=== PATIENT | male | born 1955 | race Caucasian/White ===

== ENCOUNTER 2019-07-30 05:33 | Inpatient (IN) ==
[2019-07-30] MEDS ORDERED: diphenhydrAMINE CAP 25 MG CAPSULE PO ONE (06:00)
[2019-07-30] MEDS ORDERED: MAGNESIUM SULF RIDER 2 GM in PREMIX 1 EACH IV PRN (06:00)
[2019-07-30] MEDS ORDERED: POTASSIUM CHLORIDE RIDER 10 MEQ in PREMIX 1 EACH IV PRN (06:00)
[2019-07-30] MEDS ORDERED: ASPIRIN 325 MG TABLET PO ONE (06:00)
[2019-07-30] MEDS ORDERED: DIAZEPAM 5 MG TABLET PO ONE (06:00)
[2019-07-30] MEDS ORDERED: LIDOCAINE 1% 20 ML VIAL ONE (06:46)
[2019-07-30] MEDS ORDERED: HEPARIN/NACL 0.9% 2 UNITS/ML 1,000 ML IV ONE (06:46)
[2019-07-30 06:53] LABS: Basophils # 0.1 10*3/uL (0.0-0.2); Basophils % 0.8 % (0.0-0.8); Eosinophils # 0.2 10*3/uL (0.0-0.87); Eosinophils % 2.4 % (0.00-10.9); Hematocrit 42.2 VOL% (42.0-52.0); Hemoglobin 14.1 GM/DL (14.0-18.0); Immature Granulocytes % 0.3 %; Immature Granulocytes Absolute 0.02 #; Lymphocytes # 2.5 10*3/uL (1.4-4.0); Lymphocytes % 31.5 % (21.2-54.2); Mean Corpuscular HGB Conc 33.4 GM/DL (32-36); Mean Corpuscular Volume 93.6 FL (87-102); Mean Platelet Volume 9.5 FL (9.6-12.0); Monocytes % 8.2 % (1.7-12.7); Neutrophils % 56.8 % (38.7-73.9); Platelet Count 279 T/CUMM (130-400); Red Blood Count 4.51 MC/CUMM (3.8-5.5); Red Cell Distribution Width 12.8 % (9.3-17.3); White Blood Count 7.8 T/CUMM (4-12)
[2019-07-30 06:57] LABS: PT Patient Result 11.3 SECS (9.6-12.2)
[2019-07-30] MEDS ORDERED: DIAZEPAM 5 MG TABLET ONE (07:05)
[2019-07-30] MEDS ORDERED: diphenhydrAMINE CAP 25 MG CAPSULE ONE (07:05)
[2019-07-30] MEDS: SODIUM CHLORIDE 0.9% 1,000 ML IV SCH ×2 (07:07→19:05)
[2019-07-30 07:24] LABS: Albumin 3.8 G/DL (3.4-5.0); Bilirubin,Total 0.4 MG/DL (0.2-1.0); Calcium 8.8 MG/DL (8.5-10.1); Osmolality,Calculated 275.7 MOS/KG (273-304)
[2019-07-30] MEDS ORDERED: HYDROmorphone 2 MG/1 ML VIAL ONE (07:26)
[2019-07-30] MEDS ORDERED: MIDAZOLAM 2 MG/2 ML VIAL ONE (07:26)
[2019-07-30] MEDS ORDERED: diphenhydrAMINE 50 MG/1 ML VIAL ONE (07:59)
[2019-07-30] MEDS ORDERED: HEPARIN/NACL 0.9% 2 UNITS/ML 500 ML IV ONE (08:11)
[2019-07-30] MEDS ORDERED: HEPARIN 5,000 UNIT/1 ML VIAL ONE (08:13)
[2019-07-30] MEDS ORDERED: ZALEPLON 5 MG CAPSULE PO PRN (08:47)
[2019-07-30] MEDS ORDERED: ONDANSETRON 4 MG/2 ML VIAL IV PRN (08:47)
[2019-07-30] MEDS ORDERED: CHLORPHENIRAMINE MALEATE 4 MG PO PRN (08:55)
[2019-07-30] MEDS ORDERED: ASPIRIN ACETAMINOPHEN CAFFEINE PO PRN (08:55)
[2019-07-30] MEDS ORDERED: ACETAMINOPHEN 325 MG TABLET PO PRN (08:55)
[2019-07-30] MEDS ORDERED: LOPERAMIDE 2 MG CAPSULE PO PRN (08:55)
[2019-07-30] MEDS ORDERED: ALUMINUM/MAGNES/SIMETH MAX STR 30 ML UDCUP PO PRN (14:46)
[2019-07-30] MEDS ORDERED: PROMETHAZINE 25 MG TABLET PO PRN (14:46)
[2019-07-30] MEDS ORDERED: PNEUMOCOCCAL VACCINE (13 VALENT) 0.5 ML SYRINGE IM ONE (14:52)
[2019-07-30] MEDS ORDERED: INFLUENZA VIRUS VACCINE 0.5 ML SYRINGE IM ONE (14:52)
[2019-07-30] MEDS: MECLIZINE 12.5 MG TABLET PO SCH (16:05)
[2019-07-30] MEDS: MULTIVITAMIN (CENTRUM) TABLET PO SCH (16:06)
[2019-07-30] MEDS: FERROUS SULFATE 325 MG TABLET PO SCH (16:06)
[2019-07-30] MEDS: NAPROXEN 250 MG TABLET PO SCH ×2 (16:06→23:02)
[2019-07-30] MEDS: ATORVASTATIN 40 MG TABLET PO SCH (16:06)
[2019-07-30] MEDS: LISINOPRIL/HCTZ 20-12.5 MG TABLET PO SCH (16:07)
[2019-07-30] MEDS: carBAMazepine 200 MG TABLET PO SCH ×2 (16:07→23:00)
[2019-07-30] MEDS: PHENobarbital 30 MG TABLET PO SCH ×2 (16:07→22:59)
[2019-07-31] MEDS: SODIUM CHLORIDE 0.9% 1,000 ML IV SCH (02:40)
[2019-07-31 06:20] LABS: Calcium 8.5 MG/DL (8.5-10.1); Osmolality,Calculated 272.8 MOS/KG (273-304)
[2019-07-31] MEDS ORDERED: GLUCAGON 1 MG VIAL IM PRN (08:32)
[2019-07-31] MEDS ORDERED: CEFUROXIME INJ 1,500 MG in SYRINGE 1 EACH IV ONE (08:32)
[2019-07-31] MEDS ORDERED: DEXTROSE 10% 25 GM/250 ML BAG IV PRN (08:32)
[2019-07-31] MEDS: carBAMazepine 200 MG TABLET PO SCH ×2 (09:18→22:19)
[2019-07-31] MEDS: NAPROXEN 250 MG TABLET PO SCH (09:18)
[2019-07-31] MEDS: LISINOPRIL/HCTZ 20-12.5 MG TABLET PO SCH (09:19)
[2019-07-31] MEDS: FERROUS SULFATE 325 MG TABLET PO SCH (09:19)
[2019-07-31] MEDS: ATORVASTATIN 40 MG TABLET PO SCH (09:20)
[2019-07-31] MEDS: MULTIVITAMIN (CENTRUM) TABLET PO SCH (09:20)
[2019-07-31] MEDS: PHENobarbital 30 MG TABLET PO SCH ×2 (09:21→22:22)
[2019-07-31] MEDS: CHLORHEXIDINE 0.12% ORAL RINSE 60 ML BOTTLE SWISH/SPIT SCH ×2 (09:24→22:18)
[2019-07-31] MEDS: CHLORHEXIDINE 4% SOLN 118 ML BOTTLE TOP SCH ×4 (09:25→22:18)
[2019-07-31 10:38] LABS: ABG Base Excess 5.7 MMOL/L (-2.5-2.5); ABG HCO3 29.5 MMOL/L (20-26); ABG Oxygen Saturation 96.6 % (95-100); ABG PH 7.436 (7.35-7.45); ABG PO2 80.7 MM HG (80-95); ABG TCO2 26.7 MMOL/L (23-27)
[2019-07-31] MEDS ORDERED: LORazepam 2 MG/1 ML VIAL IV PRN (14:18)
[2019-08-01] MEDS ORDERED: VANCOMYCIN 500 MG VIAL ONE (05:29)
[2019-08-01] MEDS ORDERED: PAPAVERINE 60 MG/2 ML VIAL ONE (05:29)
[2019-08-01] MEDS ORDERED: VANCOMYCIN 1,000 MG VIAL ONE (05:29)
[2019-08-01] MEDS ORDERED: MINERAL OIL/PETROLATUM OPH OINT 3.5 GM TUBE ONE (05:42)
[2019-08-01] MEDS ORDERED: SUFentanil 250 MCG/5 ML AMP ONE (05:42)
[2019-08-01] MEDS ORDERED: MIDAZOLAM 10 MG/2 ML VIAL ONE (05:42)
[2019-08-01] MEDS ORDERED: FAMOTIDINE 20 MG/2 ML VIAL IV ONE (06:00)
[2019-08-01] MEDS ORDERED: FAMOTIDINE 20 MG TABLET PO ONE (06:00)
[2019-08-01] MEDS ORDERED: carBAMazepine 200 MG TABLET PO ONE (06:00)
[2019-08-01] MEDS ORDERED: CEFUROXIME INJ 1,500 MG in SYRINGE 1 EACH IV ONE (06:00)
[2019-08-01] MEDS ORDERED: DIAZEPAM 5 MG TABLET PO ONE (06:00)
[2019-08-01] MEDS ORDERED: diphenhydrAMINE 50 MG/1 ML VIAL ONE (06:00)
[2019-08-01] MEDS ORDERED: PHENobarbital 30 MG TABLET PO ONE (06:00)
[2019-08-01 08:07] LABS: ABG Base Excess 2.8 MMOL/L (-2.5-2.5); ABG HCO3 25.1 MMOL/L (20-26); ABG Oxygen Saturation 99.1 % (95-100); ABG PCO2 31.2 MM HG (35-48); ABG PH 7.523 (7.35-7.45); ABG PO2 452.2 MM HG (80-95); Glucose Heart Surgery 99 MG/DL (74-106); Hemoglobin Heart Surgery 12.1 G/DL (14.0-18.0); Ionized Calcium Arterial 1.04 MMOL/L (1.21-1.46); PCO2 Patient Temp Arterial 31.2 MMHG; PH Patient Temp Arterial 7.523; PO2 Patient Temp Arterial 452.2 MM HG; Patient Temperature 37 CELCIUS; Potassium Heart/CVR 3.6 MMOL/L (3.5-5.1); Sodium Heart/CVR 135 MMOL/L (135-145)
[2019-08-01] MEDS ORDERED: SODIUM BICARBONATE 50 MEQ/50 ML VIAL IV ONE ×2 (08:44→12:58)
[2019-08-01] MEDS ORDERED: EPINEPHrine 1 MG/10 ML SYRINGE ONE (08:44)
[2019-08-01] MEDS ORDERED: PHENYLEPHRINE DRIP 40 MG/250 ML PREMIX IV ONE (08:44)
[2019-08-01] MEDS ORDERED: NITROPRUSSIDE 50 MG/2 ML VIAL ONE (08:44)
[2019-08-01] MEDS ORDERED: POTASSIUM CHLORIDE RIDER 0 ML IV ONE (08:44)
[2019-08-01] MEDS ORDERED: CALCIUM CHLORIDE 1,000 MG/10 ML SYRINGE IV ONE (08:44)
[2019-08-01] MEDS ORDERED: ALBUMIN 5% 12.5 GM/250 ML VIAL IV ONE ×2 (08:45)
[2019-08-01] MEDS: SODIUM CHLORIDE 0.9% 1,000 ML IV SCH ×4 (08:54→09:03)
[2019-08-01] MEDS: FERROUS SULFATE 325 MG TABLET PO SCH (08:56)
[2019-08-01] MEDS: LISINOPRIL/HCTZ 20-12.5 MG TABLET PO SCH (08:56)
[2019-08-01] MEDS: CHLORHEXIDINE 0.12% ORAL RINSE 60 ML BOTTLE SWISH/SPIT SCH (08:56)
[2019-08-01] MEDS: NAPROXEN 250 MG TABLET PO SCH (08:56)
[2019-08-01] MEDS: MECLIZINE 12.5 MG TABLET PO SCH (08:56)
[2019-08-01] MEDS: carBAMazepine 200 MG TABLET PO SCH ×2 (08:56→20:12)
[2019-08-01] MEDS: MULTIVITAMIN (CENTRUM) TABLET PO SCH (08:56)
[2019-08-01] MEDS: ATORVASTATIN 40 MG TABLET PO SCH (08:56)
[2019-08-01] MEDS: PHENobarbital 30 MG TABLET PO SCH ×2 (08:56→20:12)
[2019-08-01 09:46] LABS: Apearance,Urine Slightly Hazy (Clear); Bacteria,Urine Occasional /HPF (Few); Bilirubin,Urine Negative (Negative); Blood, Urine Large mg/dL (Negative); Glucose,Urine (UA) Negative (Negative); Ketones,Urine Negative (Negative); Mucus,Urine Occasional /LPF (Occasional); Nitrite,Urine Negative (Negative); Protein,Urine 100 MG/DL; RBC,Urine 254 /HPF (0-4); Renal Epithelial Cells,Urine Few /HPF (<1); Squamous Epithelial Cell,Urine Occasional /HPF (0-10); Urine Color Red (Yellow); Urine Specific Gravity 1.013 (1.001-1.035); Urine Urobilinogen < 2.0 EU/DL (0.2-1.0); WBC,Urine 1 /HPF (0-6)
[2019-08-01 10:03] LABS: Hemoglobin Heart Surgery 8.7 G/DL (14.0-18.0); PCO2 Patient Temp Venous 38.2 MM HG; PH Patient Temp Venous 7.479; PO2 Patient Temp Venous 41.1 MM HG; Potassium Heart/CVR 4.2 MMOL/L (3.5-5.1); VBG Base Excess 3.9 MEQ/L (0-4); VBG PCO2 39.9 MMHG (41-51); VBG PH 7.464; VBG PO2 44.1 MMHG (17-40)
[2019-08-01 10:36] LABS: Hematocrit Heart Surgery 29.2 PERCENT (42-52); Hemoglobin Heart Surgery 9.4 G/DL (14.0-18.0); PCO2 Patient Temp Venous 33.1 MM HG; PH Patient Temp Venous 7.534; PO2 Patient Temp Venous 36.4 MM HG; Potassium Heart/CVR 3.9 MMOL/L (3.5-5.1); VBG Base Excess 5.3 MEQ/L (0-4); VBG Oxygen Saturation 85.2 %; VBG PCO2 38.2 MMHG (41-51); VBG PH 7.488; VBG PO2 44.8 MMHG (17-40)
[2019-08-01 11:04] LABS: Hemoglobin Heart Surgery 9.7 G/DL (14.0-18.0); PCO2 Patient Temp Venous 27.6 MM HG; PH Patient Temp Venous 7.591; PO2 Patient Temp Venous 35.6 MM HG; VBG Base Excess 4.1 MEQ/L (0-4); VBG HCO3 26.8 MEQ/L (24-28); VBG Oxygen Saturation 86.1 %; VBG PCO2 32.9 MMHG (41-51); VBG PH 7.529; VBG PO2 47.2 MMHG (17-40)
[2019-08-01 11:34] LABS: Hematocrit Heart Surgery 30.2 PERCENT (42-52); Hemoglobin Heart Surgery 9.8 G/DL (14.0-18.0); PCO2 Patient Temp Venous 26.9 MM HG; PH Patient Temp Venous 7.595; PO2 Patient Temp Venous 29.5 MM HG; Potassium Heart/CVR 3.7 MMOL/L (3.5-5.1); VBG Base Excess 4.9 MEQ/L (0-4); VBG HCO3 28.5 MEQ/L (24-28); VBG Oxygen Saturation 81.4 %; VBG PCO2 32.6 MMHG (41-51); VBG PH 7.533; VBG PO2 39.1 MMHG (17-40)
[2019-08-01 12:07] LABS: Hemoglobin Heart Surgery 9.4 G/DL (14.0-18.0); PCO2 Patient Temp Venous 36.9 MM HG; PH Patient Temp Venous 7.499; PO2 Patient Temp Venous 34.9 MM HG; VBG Base Excess 5.3 MEQ/L (0-4); VBG HCO3 28.9 MEQ/L (24-28); VBG Oxygen Saturation 73.7 %; VBG PCO2 36.9 MMHG (41-51); VBG PH 7.499; VBG PO2 34.9 MMHG (17-40)
[2019-08-01] MEDS ORDERED: MANNITOL 100 GM/500 ML BAG IV ONE (12:57)
[2019-08-01] MEDS ORDERED: MAGNESIUM SULFATE 5 GM/10 ML VIAL IV ONE (12:58)
[2019-08-01] MEDS ORDERED: DEXTROSE 5% KCL 20 MEQ 40 MEQ/2,000 ML BAG IV ONE (12:58)
[2019-08-01] MEDS ORDERED: methylPREDNISolone SOD SUC 1,000 MG/8 ML VIAL ONE (12:58)
[2019-08-01] MEDS ORDERED: ALBUMIN 25% 25 GM/100 ML VIAL IV ONE (12:58)
[2019-08-01] MEDS ORDERED: PROTAMINE SULFATE 250 MG/25 ML VIAL IV ONE (12:58)
[2019-08-01] MEDS ORDERED: LIDOCAINE 2% 5 ML VIAL ONE ×2 (12:58→13:56)
[2019-08-01] MEDS ORDERED: HEPARIN 10,000 UNIT/10 ML VIAL ONE (12:58)
[2019-08-01] MEDS ORDERED: PROTAMINE SULFATE 50 MG/5 ML VIAL IV ONE ×3 (12:59→14:12)
[2019-08-01] MEDS ORDERED: FUROSEMIDE 20 MG/2 ML VIAL ONE (12:59)
[2019-08-01 13:03] LABS: ABG Base Excess 1.1 MMOL/L (-2.5-2.5); ABG HCO3 25.6 MMOL/L (20-26); ABG Oxygen Saturation 98.5 % (95-100); ABG PCO2 40.4 MM HG (35-48); ABG PO2 247.7 MM HG (80-95); ABG TCO2 26.9 MMOL/L (23-27); Glucose Heart Surgery 210 MG/DL (74-106); Hemoglobin Heart Surgery 9.3 G/DL (14.0-18.0); Ionized Calcium Arterial 1.24 MMOL/L (1.21-1.46); PCO2 Patient Temp Arterial 40.4 MMHG; PO2 Patient Temp Arterial 247.7 MM HG; Patient Temperature 37 CELCIUS; Potassium Heart/CVR 3.3 MMOL/L (3.5-5.1); Sodium Heart/CVR 134 MMOL/L (135-145)
[2019-08-01] MEDS ORDERED: CALCIUM CHLORIDE 1,000 MG/10 ML VIAL IV ONE (13:56)
[2019-08-01] MEDS ORDERED: PHENYLEPHRINE DRIP 20 MG/250 ML PREMIX IV ONE (13:56)
[2019-08-01] MEDS ORDERED: HEPARIN/NACL 0.9% 2 UNITS/ML 500 ML IV ONE (13:56)
[2019-08-01] MEDS ORDERED: SEVOFLURANE 1 UNIT/15 MINUTE INH ONE (13:56)
[2019-08-01] MEDS ORDERED: SODIUM CHLORIDE 0.9% 100 ML IV ONE (13:57)
[2019-08-01] MEDS ORDERED: ETOMIDATE 40 MG/20 ML VIAL IV ONE (13:57)
[2019-08-01] MEDS ORDERED: SODIUM CHLORIDE 0.9% 250 ML IV ONE (13:57)
[2019-08-01] MEDS ORDERED: SODIUM CHLORIDE 0.9% 2,000 ML IV ONE (13:57)
[2019-08-01] MEDS ORDERED: NITROGLYCERIN DRIP 50 MG/250 ML BOTTLE IV ONE (13:57)
[2019-08-01] MEDS ORDERED: AMINOCAPROIC ACID 5,000 MG/20 ML VIAL ONE (13:57)
[2019-08-01] MEDS ORDERED: VECURONIUM 10 MG VIAL IV ONE (13:57)
[2019-08-01] MEDS ORDERED: LACTATED RINGERS 1,000 ML IV ONE (13:57)
[2019-08-01] MEDS: PHENYLEPHRINE DRIP 40 MG/250 ML PREMIX IV PRN (14:00)
[2019-08-01] MEDS: ALBUMIN 5% 12.5 GM in PREMIX 1 EACH IV PRN ×2 (14:00→16:50)
[2019-08-01] MEDS ORDERED: INSULIN REGULAR 100 UNIT/ML IV PRN (14:09)
[2019-08-01] MEDS ORDERED: INSULIN REGULAR 100 UNIT/ML IV ONE (14:09)
[2019-08-01] MEDS ORDERED: INSULIN REGULAR DRIP 100 ML IV SCH (14:09)
[2019-08-01] MEDS ORDERED: MIDAZOLAM 10 MG/2 ML VIAL IV PRN (14:09)
[2019-08-01] MEDS ORDERED: MAGNESIUM SULF RIDER 4 GM in PREMIX 1 EACH IV PRN (14:09)
[2019-08-01] MEDS ORDERED: POTASSIUM CHLORIDE RIDER 10 MEQ in PREMIX 1 EACH IV PRN (14:09)
[2019-08-01] MEDS ORDERED: DEXTROSE 10% 250 ML BAG IV PRN ×2 (14:09)
[2019-08-01] MEDS ORDERED: VECURONIUM 10 MG VIAL IV PRN ×2 (14:09)
[2019-08-01] MEDS ORDERED: MORPHINE 10 MG/1 ML VIAL IV PRN (14:09)
[2019-08-01] MEDS ORDERED: POTASSIUM CHLORIDE RIDER 20 MEQ in PREMIX 1 EACH IV PRN (14:09)
[2019-08-01] MEDS ORDERED: SODIUM CHLORIDE 0.45% 1,000 ML IV SCH ×2 (14:09)
[2019-08-01] MEDS ORDERED: NITROPRUSSIDE 100 MG in DEXTROSE 5% 250 ML IV PRN (14:09)
[2019-08-01] MEDS ORDERED: ACETAMINOPHEN 650 MG SUPP RECTAL PRN (14:09)
[2019-08-01] MEDS ORDERED: ONDANSETRON 4 MG/2 ML VIAL IV PRN (14:09)
[2019-08-01] MEDS ORDERED: MAGNESIUM SULF RIDER 2 GM in PREMIX 1 EACH IV PRN (14:09)
[2019-08-01] MEDS ORDERED: CALCIUM CHLORIDE 1,000 MG/10 ML SYRINGE IV PRN (14:09)
[2019-08-01] MEDS ORDERED: LACTATED RINGERS 250 ML IV PRN (14:09)
[2019-08-01 14:17] LABS: ABG Base Excess 0.7 MMOL/L (-2.5-2.5); ABG HCO3 25.1 MMOL/L (20-26); ABG Oxygen Saturation 99.3 % (95-100); ABG PCO2 39.4 MM HG (35-48); ABG PH 7.414 (7.35-7.45); ABG TCO2 23.2 MMOL/L (23-27); Glucose Heart Surgery 167 MG/DL (74-106); Hematocrit Heart Surgery 27.7 PERCENT (42-52); Hemoglobin Heart Surgery 8.9 G/DL (14.0-18.0); Potassium Heart/CVR 3.8 MMOL/L (3.5-5.1)
[2019-08-01 14:21] LABS: Basophils % 0.2 % (0.0-0.8); Eosinophils # 0.1 10*3/uL (0.0-0.87); Eosinophils % 0.7 % (0.00-10.9); Hematocrit 26.6 VOL% (42.0-52.0); Immature Granulocytes % 0.9 %; Immature Granulocytes Absolute 0.14 #; Lymphocytes # 1.2 10*3/uL (1.4-4.0); Lymphocytes % 7.5 % (21.2-54.2); Mean Corpuscular HGB Conc 33.8 GM/DL (32-36); Mean Corpuscular Volume 94.3 FL (87-102); Mean Platelet Volume 9.6 FL (9.6-12.0); Monocytes % 6.8 % (1.7-12.7); Neutrophils % 83.9 % (38.7-73.9); Platelet Count 200 T/CUMM (130-400); Red Blood Count 2.82 MC/CUMM (3.8-5.5); Red Cell Distribution Width 12.8 % (9.3-17.3); White Blood Count 16.5 T/CUMM (4-12)
[2019-08-01 14:31] LABS: INR 1.2; PT Patient Result 13.5 SECS (9.6-12.2)
[2019-08-01 14:36] LABS: CKMB % 6.9 %
[2019-08-01 14:39] LABS: Troponin I 11.8 NG/ML (0.00-0.045)
[2019-08-01 14:43] LABS: Albumin 2.6 G/DL (3.4-5.0); Bilirubin,Total 0.5 MG/DL (0.2-1.0); Calcium 8.5 MG/DL (8.5-10.1); Osmolality,Calculated 280.4 MOS/KG (273-304); Total Protein 4.8 G/DL (6.4-8.3)
[2019-08-01] MEDS ORDERED: MIDAZOLAM 2 MG/2 ML VIAL ONE (14:50)
[2019-08-01] MEDS: MIDAZOLAM 2 MG/2 ML VIAL IV PRN ×2 (15:01→16:12)
[2019-08-01] MEDS: LACTATED RINGERS 1,000 ML IV PRN ×2 (15:33→15:50)
[2019-08-01 15:50] LABS: ABG Base Excess -1.6 MMOL/L (-2.5-2.5); ABG HCO3 23.1 MMOL/L (20-26); ABG Oxygen Saturation 97.9 % (95-100); ABG PCO2 49.3 MM HG (35-48); ABG PH 7.316 (7.35-7.45); ABG TCO2 22.5 MMOL/L (23-27); Glucose Heart Surgery 182 MG/DL (74-106); Hematocrit Heart Surgery 36.8 PERCENT (42-52); Potassium Heart/CVR 4.8 MMOL/L (3.5-5.1)
[2019-08-01] MEDS: KETOROLAC 30 MG/1 ML VIAL IV SCH ×2 (16:08→20:12)
[2019-08-01 18:14] LABS: ABG Base Excess -1.4 MMOL/L (-2.5-2.5); ABG HCO3 23.3 MMOL/L (20-26); ABG PCO2 47.4 MM HG (35-48); ABG PH 7.329 (7.35-7.45); ABG TCO2 22.4 MMOL/L (23-27); Glucose Heart Surgery 195 MG/DL (74-106); Hematocrit Heart Surgery 35.6 PERCENT (42-52); Hemoglobin Heart Surgery 11.6 G/DL (14.0-18.0); Potassium Heart/CVR 4.6 MMOL/L (3.5-5.1)
[2019-08-01] MEDS ORDERED: FUROSEMIDE 40 MG/4 ML VIAL IV ONE (20:11)
[2019-08-01] MEDS ORDERED: CHLORHEXIDINE 0.12% ORAL RINSE 60 ML BOTTLE SWISH/SPIT SCH (21:00)
[2019-08-01] MEDS: MORPHINE 4 MG/1 ML VIAL IV PRN (21:03)
[2019-08-01] MEDS ORDERED: CEFUROXIME INJ 1,500 MG in SYRINGE 1 EACH IV SCH (22:00)
[2019-08-02 00:14] LABS: CKMB % 8.4 %
[2019-08-02 00:15] LABS: Troponin I 27.3 NG/ML (0.00-0.045)
[2019-08-02] MEDS ORDERED: FUROSEMIDE 40 MG/4 ML VIAL IV ONE (01:18)
[2019-08-02] MEDS: PHENYLEPHRINE DRIP 40 MG/250 ML PREMIX IV PRN ×2 (01:37→11:55)
[2019-08-02] MEDS: KETOROLAC 30 MG/1 ML VIAL IV SCH (02:04)
[2019-08-02 03:15] LABS: ABG HCO3 24.4 MMOL/L (20-26); ABG Oxygen Saturation 96.3 % (95-100); ABG PCO2 52.6 MM HG (35-48); ABG PH 7.316 (7.35-7.45); ABG PO2 83.2 MM HG (80-95); ABG TCO2 24.4 MMOL/L (23-27); Glucose Heart Surgery 125 MG/DL (74-106); Hematocrit Heart Surgery 33.7 PERCENT (42-52); Hemoglobin Heart Surgery 10.9 G/DL (14.0-18.0); Potassium Heart/CVR 4.7 MMOL/L (3.5-5.1)
[2019-08-02 03:17] LABS: Basophils % 0.1 % (0.0-0.8); Hematocrit 32.1 VOL% (42.0-52.0); Hemoglobin 10.6 GM/DL (14.0-18.0); Immature Granulocytes % 0.4 %; Immature Granulocytes Absolute 0.08 #; Mean Corpuscular Volume 91.7 FL (87-102); Mean Platelet Volume 10.4 FL (9.6-12.0); Monocytes % 9.5 % (1.7-12.7); Platelet Count 176 T/CUMM (130-400); Red Cell Distribution Width 15.6 % (9.3-17.3); White Blood Count 18.8 T/CUMM (4-12)
[2019-08-02 03:48] LABS: Albumin 3.4 G/DL (3.4-5.0); Bilirubin,Direct 0.12 MG/DL (0.0-0.20); Bilirubin,Total 0.4 MG/DL (0.2-1.0); Calcium 7.8 MG/DL (8.5-10.1); Osmolality,Calculated 277.7 MOS/KG (273-304); Total Protein 5.8 G/DL (6.4-8.3)
[2019-08-02] MEDS: MORPHINE 4 MG/1 ML VIAL IV PRN ×2 (05:58→21:53)
[2019-08-02] MEDS ORDERED: PROMETHAZINE INJ 12.5 MG in SODIUM CHLORIDE 0.9% 50 ML IV PRN (06:13)
[2019-08-02] MEDS ORDERED: METOCLOPRAMIDE 10 MG/2 ML VIAL IV PRN (06:13)
[2019-08-02] MEDS ORDERED: PHENobarbital 30 MG TABLET PO ONE (06:24)
[2019-08-02] MEDS ORDERED: carBAMazepine 200 MG TABLET PO ONE (06:24)
[2019-08-02] MEDS ORDERED: ALUMINUM/MAGNES/SIMETH MAX STR 30 ML UDCUP PO PRN ×2 (06:24→06:38)
[2019-08-02] MEDS ORDERED: LOPERAMIDE 2 MG CAPSULE PO PRN (06:24)
[2019-08-02] MEDS ORDERED: GLUCAGON 1 MG VIAL IM PRN ×2 (06:38)
[2019-08-02] MEDS ORDERED: MAGNESIUM SULF RIDER 4 GM in PREMIX 1 EACH IV PRN (06:38)
[2019-08-02] MEDS ORDERED: MAGNESIUM SULF RIDER 2 GM in PREMIX 1 EACH IV PRN (06:38)
[2019-08-02] MEDS ORDERED: ONDANSETRON 4 MG/2 ML VIAL IV PRN (06:38)
[2019-08-02] MEDS ORDERED: DEXTROSE 10% 250 ML BAG IV PRN (06:38)
[2019-08-02] MEDS ORDERED: ACETAMINOPHEN 325 MG TABLET PO PRN (06:38)
[2019-08-02] MEDS ORDERED: DEXTROSE 50% 25 GM/50 ML VIAL IV PRN (06:38)
[2019-08-02] MEDS ORDERED: POTASSIUM CHLORIDE 20 MEQ TABLET PO PRN (06:38)
[2019-08-02] MEDS: SODIUM CHLOR 0.45% KCL 20 MEQ 20 MEQ/1,000 ML BAG IV SCH (08:46)
[2019-08-02] MEDS: ASPIRIN EC 325 MG TABLET PO SCH (08:48)
[2019-08-02] MEDS: carBAMazepine 200 MG TABLET PO SCH ×2 (08:48→20:00)
[2019-08-02] MEDS: PHENobarbital 30 MG TABLET PO SCH ×2 (08:48→20:00)
[2019-08-02] MEDS: MULTIVITAMIN (CENTRUM) TABLET PO SCH (08:48)
[2019-08-02] MEDS: DOCUSATE SODIUM 100 MG CAPSULE PO SCH (08:49)
[2019-08-02] MEDS: CHLORHEXIDINE 0.12% ORAL RINSE 60 ML BOTTLE SWISH/SPIT SCH ×2 (08:49→20:00)
[2019-08-02] MEDS: PANTOPRAZOLE 40 MG TABLET PO SCH (08:49)
[2019-08-02] MEDS: MECLIZINE 25 MG TABLET PO SCH (08:49)
[2019-08-02] MEDS: LISINOPRIL/HCTZ 20-12.5 MG TABLET PO SCH (08:49)
[2019-08-02] MEDS: KETOROLAC 15 MG/1 ML VIAL IV SCH ×3 (08:50→19:56)
[2019-08-02] MEDS: FERROUS SULFATE 325 MG TABLET PO SCH (08:52)
[2019-08-02] MEDS ORDERED: ATORVASTATIN 40 MG TABLET PO SCH (09:00)
[2019-08-02] MEDS ORDERED: PHENYLEPHRINE DRIP 40 MG/250 ML PREMIX IV ONE (11:53)
[2019-08-02] MEDS: INSULIN REGULAR 100 UNIT/ML SUBCUT SCH ×2 (12:25→17:01)
[2019-08-02] MEDS ORDERED: ALBUMIN 5% 25 GM in PREMIX 1 EACH IV ONE (13:35)
[2019-08-03] MEDS: PHENYLEPHRINE DRIP 40 MG/250 ML PREMIX IV PRN (00:01)
[2019-08-03] MEDS: INSULIN REGULAR 100 UNIT/ML SUBCUT SCH ×4 (00:15→17:40)
[2019-08-03] MEDS: MORPHINE 4 MG/1 ML VIAL IV PRN ×2 (01:15→03:35)
[2019-08-03 05:09] LABS: Basophils # 0.1 10*3/uL (0.0-0.2); Basophils % 0.4 % (0.0-0.8); Eosinophils # 0.1 10*3/uL (0.0-0.87); Eosinophils % 0.7 % (0.00-10.9); Hematocrit 24.4 VOL% (42.0-52.0); Hemoglobin 8.1 GM/DL (14.0-18.0); Immature Granulocytes % 0.5 %; Immature Granulocytes Absolute 0.06 #; Lymphocytes # 1.7 10*3/uL (1.4-4.0); Lymphocytes % 13.9 % (21.2-54.2); Mean Corpuscular HGB Conc 33.2 GM/DL (32-36); Mean Corpuscular Volume 93.5 FL (87-102); Mean Platelet Volume 11.1 FL (9.6-12.0); Monocytes % 9.2 % (1.7-12.7); Neutrophils % 75.3 % (38.7-73.9); Platelet Count 132 T/CUMM (130-400); Red Blood Count 2.61 MC/CUMM (3.8-5.5); White Blood Count 12.1 T/CUMM (4-12)
[2019-08-03 05:41] LABS: Alanine Aminotransferase 34 U/L (16-61); Albumin 3.2 G/DL (3.4-5.0); Alkaline Phosphatase 52 U/L (45-117); Aspartate Amino Transferase 64 U/L (0-37); Bilirubin,Direct < 0.100 MG/DL (0.0-0.20); Bilirubin,Indirect 0.5 MG/DL (0.0-1.0); Blood Urea Nitrogen 30 MG/DL (7-18); CKMB % 2.4 %; Calcium 7.6 MG/DL (8.5-10.1); Estimated Glom Filtration Rate 52 ML/MIN; Glucose 133 MG/DL (74-106); Total Protein 5.5 G/DL (6.4-8.3)
[2019-08-03] MEDS ORDERED: FUROSEMIDE 40 MG/4 ML VIAL IV ONE (06:00)
[2019-08-03] MEDS: HYDROmorphone 2 MG/1 ML VIAL IV PRN ×2 (07:28→12:06)
[2019-08-03] MEDS: LISINOPRIL/HCTZ 20-12.5 MG TABLET PO SCH (08:16)
[2019-08-03] MEDS: DOCUSATE SODIUM 100 MG CAPSULE PO SCH (08:22)
[2019-08-03] MEDS: carBAMazepine 200 MG TABLET PO SCH ×2 (08:22→21:52)
[2019-08-03] MEDS: PANTOPRAZOLE 40 MG TABLET PO SCH (08:22)
[2019-08-03] MEDS: FERROUS SULFATE 325 MG TABLET PO SCH (08:22)
[2019-08-03] MEDS: ASPIRIN EC 325 MG TABLET PO SCH (08:22)
[2019-08-03] MEDS: PHENobarbital 30 MG TABLET PO SCH ×2 (08:23→21:52)
[2019-08-03] MEDS: MULTIVITAMIN (CENTRUM) TABLET PO SCH (08:23)
[2019-08-03] MEDS: SODIUM CHLOR 0.45% KCL 20 MEQ 20 MEQ/1,000 ML BAG IV SCH (08:42)
[2019-08-03] MEDS: CHLORHEXIDINE 0.12% ORAL RINSE 60 ML BOTTLE SWISH/SPIT SCH ×2 (11:20→21:52)
[2019-08-04] MEDS: INSULIN REGULAR 100 UNIT/ML SUBCUT SCH ×4 (00:36→19:35)
[2019-08-04 05:27] LABS: Basophils % 0.3 % (0.0-0.8); Eosinophils # 0.1 10*3/uL (0.0-0.87); Eosinophils % 1.2 % (0.00-10.9); Hematocrit 24.4 VOL% (42.0-52.0); Hemoglobin 8.1 GM/DL (14.0-18.0); Immature Granulocytes % 0.9 %; Immature Granulocytes Absolute 0.08 #; Lymphocytes % 10.7 % (21.2-54.2); Mean Corpuscular HGB Conc 33.2 GM/DL (32-36); Mean Corpuscular Volume 94.6 FL (87-102); Mean Platelet Volume 10.8 FL (9.6-12.0); Monocytes % 9.1 % (1.7-12.7); Neutrophils % 77.8 % (38.7-73.9); Platelet Count 126 T/CUMM (130-400); Red Blood Count 2.58 MC/CUMM (3.8-5.5); Red Cell Distribution Width 14.2 % (9.3-17.3); White Blood Count 9.3 T/CUMM (4-12)
[2019-08-04 05:56] LABS: Alanine Aminotransferase 31 U/L (16-61); Albumin 3.2 G/DL (3.4-5.0); Alkaline Phosphatase 55 U/L (45-117); Aspartate Amino Transferase 38 U/L (0-37); Bilirubin,Indirect 0.4 MG/DL (0.0-1.0); Blood Urea Nitrogen 27 MG/DL (7-18); Calcium 7.9 MG/DL (8.5-10.1); Estimated Glom Filtration Rate 105 ML/MIN; Glucose 128 MG/DL (74-106); Osmolality,Calculated 274.2 MOS/KG (273-304)
[2019-08-04] MEDS: traMADol 50 MG TABLET PO PRN ×2 (06:35→21:06)
[2019-08-04] MEDS: MECLIZINE 25 MG TABLET PO SCH (08:27)
[2019-08-04] MEDS: MULTIVITAMIN (CENTRUM) TABLET PO SCH (08:27)
[2019-08-04] MEDS: carBAMazepine 200 MG TABLET PO SCH ×2 (08:27→21:05)
[2019-08-04] MEDS: LISINOPRIL/HCTZ 20-12.5 MG TABLET PO SCH (08:28)
[2019-08-04] MEDS: DOCUSATE SODIUM 100 MG CAPSULE PO SCH (08:28)
[2019-08-04] MEDS: FERROUS SULFATE 325 MG TABLET PO SCH (08:28)
[2019-08-04] MEDS: PHENobarbital 30 MG TABLET PO SCH ×2 (08:28→21:12)
[2019-08-04] MEDS: CHLORHEXIDINE 0.12% ORAL RINSE 60 ML BOTTLE SWISH/SPIT SCH ×2 (08:28→21:06)
[2019-08-04] MEDS: ASPIRIN EC 325 MG TABLET PO SCH (08:28)
[2019-08-04] MEDS: PANTOPRAZOLE 40 MG TABLET PO SCH (08:34)
[2019-08-04] MEDS: MAGNESIUM HYDROXIDE SUSP 30 ML UDCUP PO PRN (08:36)
[2019-08-05] MEDS: traMADol 50 MG TABLET PO PRN (05:51)
[2019-08-05] MEDS: LISINOPRIL/HCTZ 20-12.5 MG TABLET PO SCH (08:51)
[2019-08-05] MEDS: MULTIVITAMIN (CENTRUM) TABLET PO SCH (08:51)
[2019-08-05] MEDS: CHLORHEXIDINE 0.12% ORAL RINSE 60 ML BOTTLE SWISH/SPIT SCH ×2 (08:51→21:01)
[2019-08-05] MEDS: carBAMazepine 200 MG TABLET PO SCH ×2 (08:51→21:01)
[2019-08-05] MEDS: PHENobarbital 30 MG TABLET PO SCH ×2 (08:52→21:01)
[2019-08-05] MEDS: FERROUS SULFATE 325 MG TABLET PO SCH (08:52)
[2019-08-05] MEDS: PANTOPRAZOLE 40 MG TABLET PO SCH (08:52)
[2019-08-05] MEDS: DOCUSATE SODIUM 100 MG CAPSULE PO SCH (08:52)
[2019-08-05] MEDS: ASPIRIN EC 325 MG TABLET PO SCH (08:52)
[2019-08-05] MEDS: MAGNESIUM HYDROXIDE SUSP 30 ML UDCUP PO PRN (08:58)
[2019-08-05] MEDS: HYDROmorphone 2 MG/1 ML VIAL IV PRN ×2 (08:59→21:11)
[2019-08-05] MEDS: ZALEPLON 5 MG CAPSULE PO PRN (21:11)
[2019-08-06 05:53] LABS: Basophils # 0.1 10*3/uL (0.0-0.2); Basophils % 0.6 % (0.0-0.8); Eosinophils # 0.6 10*3/uL (0.0-0.87); Eosinophils % 6.2 % (0.00-10.9); Immature Granulocytes % 1.8 %; Immature Granulocytes Absolute 0.17 #; Lymphocytes # 1.2 10*3/uL (1.4-4.0); Lymphocytes % 12.8 % (21.2-54.2); Mean Corpuscular Volume 96.5 FL (87-102); Mean Platelet Volume 10.8 FL (9.6-12.0); NRBC # 0.03 10*3/uL; Neutrophils % 67.6 % (38.7-73.9); Platelet Count 216 T/CUMM (130-400); Red Blood Count 2.59 MC/CUMM (3.8-5.5); Red Cell Distribution Width 14.4 % (9.3-17.3); White Blood Count 9.5 T/CUMM (4-12)
[2019-08-06 06:37] LABS: Alanine Aminotransferase 29 U/L (16-61); Alkaline Phosphatase 64 U/L (45-117); Aspartate Amino Transferase 19 U/L (0-37); Bilirubin,Direct < 0.100 MG/DL (0.0-0.20); Bilirubin,Indirect 0.3 MG/DL (0.0-1.0); Bilirubin,Total < 0.39 MG/DL (0.2-1.0); Blood Urea Nitrogen 22 MG/DL (7-18); Calcium 7.8 MG/DL (8.5-10.1); Estimated Glom Filtration Rate 120 ML/MIN; Glucose 116 MG/DL (74-106); Osmolality,Calculated 276.8 MOS/KG (273-304); Total Protein 5.8 G/DL (6.4-8.3)
[2019-08-06] MEDS: DOCUSATE SODIUM 100 MG CAPSULE PO SCH (09:29)
[2019-08-06] MEDS: ASPIRIN EC 325 MG TABLET PO SCH (09:30)
[2019-08-06] MEDS: FERROUS SULFATE 325 MG TABLET PO SCH (09:30)
[2019-08-06] MEDS: carBAMazepine 200 MG TABLET PO SCH ×2 (09:31→21:45)
[2019-08-06] MEDS: LISINOPRIL/HCTZ 20-12.5 MG TABLET PO SCH (09:31)
[2019-08-06] MEDS: PHENobarbital 30 MG TABLET PO SCH ×2 (09:31→21:45)
[2019-08-06] MEDS: MECLIZINE 25 MG TABLET PO SCH (09:32)
[2019-08-06] MEDS: PANTOPRAZOLE 40 MG TABLET PO SCH (09:33)
[2019-08-06] MEDS: MULTIVITAMIN (CENTRUM) TABLET PO SCH (09:33)
[2019-08-06] MEDS: CHLORHEXIDINE 0.12% ORAL RINSE 60 ML BOTTLE SWISH/SPIT SCH ×2 (09:33→21:46)
[2019-08-06] MEDS: traMADol 50 MG TABLET PO PRN (13:47)
[2019-08-06] MEDS: ZALEPLON 5 MG CAPSULE PO PRN (21:45)
[2019-08-07] MEDS: HYDROmorphone 2 MG/1 ML VIAL IV PRN (02:40)
[2019-08-07 05:50] LABS: Basophils # 0.1 10*3/uL (0.0-0.2); Basophils % 0.8 % (0.0-0.8); Eosinophils # 0.6 10*3/uL (0.0-0.87); Eosinophils % 5.7 % (0.00-10.9); Hematocrit 28.1 VOL% (42.0-52.0); Hemoglobin 8.8 GM/DL (14.0-18.0); Immature Granulocytes % 2.2 %; Immature Granulocytes Absolute 0.24 #; Lymphocytes # 1.8 10*3/uL (1.4-4.0); Lymphocytes % 16.7 % (21.2-54.2); Mean Corpuscular HGB Conc 31.3 GM/DL (32-36); Mean Corpuscular Volume 97.6 FL (87-102); Mean Platelet Volume 9.9 FL (9.6-12.0); NRBC # 0.02 10*3/uL; Neutrophils % 63.6 % (38.7-73.9); Platelet Count 283 T/CUMM (130-400); Red Blood Count 2.88 MC/CUMM (3.8-5.5); Red Cell Distribution Width 14.7 % (9.3-17.3); White Blood Count 10.8 T/CUMM (4-12)
[2019-08-07 06:22] LABS: Alanine Aminotransferase 38 U/L (16-61); Albumin 2.7 G/DL (3.4-5.0); Alkaline Phosphatase 73 U/L (45-117); Aspartate Amino Transferase 21 U/L (0-37); Bilirubin,Direct < 0.100 MG/DL (0.0-0.20); Bilirubin,Indirect 0.7 MG/DL (0.0-1.0); Blood Urea Nitrogen 19 MG/DL (7-18); Calcium 8.1 MG/DL (8.5-10.1); Estimated Glom Filtration Rate 126 ML/MIN; Glucose 105 MG/DL (74-106); Osmolality,Calculated 271.1 MOS/KG (273-304); Total Protein 5.9 G/DL (6.4-8.3)
[2019-08-07] MEDS: DOCUSATE SODIUM 100 MG CAPSULE PO SCH (10:12)
[2019-08-07] MEDS: CHLORHEXIDINE 0.12% ORAL RINSE 60 ML BOTTLE SWISH/SPIT SCH ×2 (10:13→21:01)
[2019-08-07] MEDS: ASPIRIN EC 325 MG TABLET PO SCH (10:13)
[2019-08-07] MEDS: LISINOPRIL/HCTZ 20-12.5 MG TABLET PO SCH (10:13)
[2019-08-07] MEDS: FERROUS SULFATE 325 MG TABLET PO SCH (10:13)
[2019-08-07] MEDS: MULTIVITAMIN (CENTRUM) TABLET PO SCH (10:13)
[2019-08-07] MEDS: PANTOPRAZOLE 40 MG TABLET PO SCH (10:14)
[2019-08-07] MEDS: carBAMazepine 200 MG TABLET PO SCH ×2 (10:22→21:01)
[2019-08-07] MEDS: PHENobarbital 30 MG TABLET PO SCH ×2 (10:22→21:01)
[2019-08-07] MEDS: carvediloL 3.125 MG TABLET PO SCH ×2 (10:34→21:02)
[2019-08-07] MEDS ORDERED: KETOROLAC 30 MG/1 ML VIAL IV ONE (15:08)
[2019-08-07] MEDS: ROSUVASTATIN 20 MG TABLET PO SCH (21:02)
[2019-08-08] MEDS: traMADol 50 MG TABLET PO PRN ×3 (00:07→16:12)
[2019-08-08] MEDS: ZOLPIDEM 5 MG TABLET PO PRN (00:08)
[2019-08-08 06:17] LABS: Basophils # 0.1 10*3/uL (0.0-0.2); Basophils % 0.7 % (0.0-0.8); Eosinophils # 0.7 10*3/uL (0.0-0.87); Eosinophils % 6.1 % (0.00-10.9); Hematocrit 29.9 VOL% (42.0-52.0); Hemoglobin 9.5 GM/DL (14.0-18.0); Immature Granulocytes % 1.5 %; Immature Granulocytes Absolute 0.17 #; Lymphocytes # 1.8 10*3/uL (1.4-4.0); Lymphocytes % 16.3 % (21.2-54.2); Mean Corpuscular HGB Conc 31.8 GM/DL (32-36); Mean Corpuscular Volume 97.1 FL (87-102); Mean Platelet Volume 10.1 FL (9.6-12.0); Monocytes % 8.5 % (1.7-12.7); NRBC # 0.02 10*3/uL; Neutrophils % 66.9 % (38.7-73.9); Platelet Count 321 T/CUMM (130-400); Red Blood Count 3.08 MC/CUMM (3.8-5.5); Red Cell Distribution Width 15.2 % (9.3-17.3); White Blood Count 11.1 T/CUMM (4-12)
[2019-08-08 06:35] LABS: Calcium 8.4 MG/DL (8.5-10.1)
[2019-08-08] MEDS: LISINOPRIL/HCTZ 20-12.5 MG TABLET PO SCH (08:42)
[2019-08-08] MEDS: MULTIVITAMIN (CENTRUM) TABLET PO SCH (08:42)
[2019-08-08] MEDS: MECLIZINE 25 MG TABLET PO SCH (08:42)
[2019-08-08] MEDS: carBAMazepine 200 MG TABLET PO SCH ×2 (08:42→21:57)
[2019-08-08] MEDS: PHENobarbital 30 MG TABLET PO SCH ×2 (08:43→21:57)
[2019-08-08] MEDS: DOCUSATE SODIUM 100 MG CAPSULE PO SCH (08:45)
[2019-08-08] MEDS: FERROUS SULFATE 325 MG TABLET PO SCH (08:45)
[2019-08-08] MEDS: PANTOPRAZOLE 40 MG TABLET PO SCH (08:45)
[2019-08-08] MEDS: carvediloL 3.125 MG TABLET PO SCH ×2 (08:45→21:58)
[2019-08-08] MEDS: CHLORHEXIDINE 0.12% ORAL RINSE 60 ML BOTTLE SWISH/SPIT SCH ×2 (08:47→21:58)
[2019-08-08] MEDS: ASPIRIN EC 325 MG TABLET PO SCH (08:49)
[2019-08-08] MEDS: ROSUVASTATIN 20 MG TABLET PO SCH (21:58)
[2019-08-09] MEDS: traMADol 50 MG TABLET PO PRN ×2 (03:30→22:07)
[2019-08-09] MEDS: LISINOPRIL/HCTZ 20-12.5 MG TABLET PO SCH (09:43)
[2019-08-09] MEDS: ASPIRIN EC 325 MG TABLET PO SCH (09:43)
[2019-08-09] MEDS: PANTOPRAZOLE 40 MG TABLET PO SCH (09:44)
[2019-08-09] MEDS: MULTIVITAMIN (CENTRUM) TABLET PO SCH (09:44)
[2019-08-09] MEDS: carvediloL 3.125 MG TABLET PO SCH ×2 (09:44→22:06)
[2019-08-09] MEDS: FERROUS SULFATE 325 MG TABLET PO SCH (09:44)
[2019-08-09] MEDS: CHLORHEXIDINE 0.12% ORAL RINSE 60 ML BOTTLE SWISH/SPIT SCH ×2 (09:45→22:06)
[2019-08-09] MEDS: PHENobarbital 30 MG TABLET PO SCH (09:51)
[2019-08-09] MEDS: DOCUSATE SODIUM 100 MG CAPSULE PO SCH (09:51)
[2019-08-09] MEDS: carBAMazepine 200 MG TABLET PO SCH ×2 (09:51→22:06)
[2019-08-09] MEDS: ROSUVASTATIN 20 MG TABLET PO SCH (22:06)
[2019-08-09] MEDS: ZOLPIDEM 5 MG TABLET PO PRN (22:06)
[2019-08-10] MEDS: traMADol 50 MG TABLET PO PRN (04:06)
[2019-08-10] MEDS: DOCUSATE SODIUM 100 MG CAPSULE PO SCH (09:32)
[2019-08-10] MEDS: MULTIVITAMIN (CENTRUM) TABLET PO SCH (09:32)
[2019-08-10] MEDS: carBAMazepine 200 MG TABLET PO SCH ×2 (09:32→22:21)
[2019-08-10] MEDS: PANTOPRAZOLE 40 MG TABLET PO SCH (09:32)
[2019-08-10] MEDS: ASPIRIN EC 325 MG TABLET PO SCH (09:32)
[2019-08-10] MEDS: MECLIZINE 25 MG TABLET PO SCH (09:32)
[2019-08-10] MEDS: FERROUS SULFATE 325 MG TABLET PO SCH (09:32)
[2019-08-10] MEDS: LISINOPRIL/HCTZ 20-12.5 MG TABLET PO SCH (09:32)
[2019-08-10] MEDS: carvediloL 3.125 MG TABLET PO SCH ×2 (09:33→22:21)
[2019-08-10] MEDS: CHLORHEXIDINE 0.12% ORAL RINSE 60 ML BOTTLE SWISH/SPIT SCH ×2 (09:33→22:21)
[2019-08-10] MEDS: PHENobarbital 30 MG TABLET PO SCH ×2 (10:25→22:21)
[2019-08-10] MEDS: oxyCODONE/ACETAMINOPHEN 5-325 MG TABLET PO PRN (14:20)
[2019-08-10] MEDS: ROSUVASTATIN 20 MG TABLET PO SCH (22:21)
[2019-08-11] MEDS: oxyCODONE/ACETAMINOPHEN 5-325 MG TABLET PO PRN (03:44)
[2019-08-11] MEDS: carBAMazepine 200 MG TABLET PO SCH ×2 (09:27→21:28)
[2019-08-11] MEDS: PANTOPRAZOLE 40 MG TABLET PO SCH (09:28)
[2019-08-11] MEDS: PHENobarbital 30 MG TABLET PO SCH ×2 (09:28→21:29)
[2019-08-11] MEDS: carvediloL 3.125 MG TABLET PO SCH ×2 (09:28→21:27)
[2019-08-11] MEDS: ASPIRIN EC 325 MG TABLET PO SCH (09:28)
[2019-08-11] MEDS: LISINOPRIL/HCTZ 20-12.5 MG TABLET PO SCH (09:28)
[2019-08-11] MEDS: DOCUSATE SODIUM 100 MG CAPSULE PO SCH (09:28)
[2019-08-11] MEDS: FERROUS SULFATE 325 MG TABLET PO SCH (09:29)
[2019-08-11] MEDS: CHLORHEXIDINE 0.12% ORAL RINSE 60 ML BOTTLE SWISH/SPIT SCH ×2 (09:29→21:30)
[2019-08-11] MEDS: MULTIVITAMIN (CENTRUM) TABLET PO SCH (09:29)
[2019-08-11] MEDS ORDERED: FUROSEMIDE 20 MG/2 ML VIAL IV ONE (12:56)
[2019-08-11] MEDS: SPIRONOLACTONE 25 MG TABLET PO SCH ×2 (13:56→21:27)
[2019-08-11] MEDS: ROSUVASTATIN 20 MG TABLET PO SCH (21:27)
[2019-08-12] MEDS: oxyCODONE/ACETAMINOPHEN 5-325 MG TABLET PO PRN (02:25)
[2019-08-12 06:12] LABS: Alanine Aminotransferase 46 U/L (16-61); Alkaline Phosphatase 92 U/L (45-117); Aspartate Amino Transferase 21 U/L (0-37); Bilirubin,Total < 0.39 MG/DL (0.2-1.0); Blood Urea Nitrogen 22 MG/DL (7-18); Calcium 8.2 MG/DL (8.5-10.1); Estimated Glom Filtration Rate 83 ML/MIN; Glucose 99 MG/DL (74-106); Osmolality,Calculated 277.7 MOS/KG (273-304); Total Protein 6.3 G/DL (6.4-8.3)
[2019-08-12] MEDS: FERROUS SULFATE 325 MG TABLET PO SCH (09:38)
[2019-08-12] MEDS: SPIRONOLACTONE 25 MG TABLET PO SCH ×2 (09:39→21:14)
[2019-08-12] MEDS: LISINOPRIL/HCTZ 20-12.5 MG TABLET PO SCH (09:39)
[2019-08-12] MEDS: carBAMazepine 200 MG TABLET PO SCH ×2 (09:39→21:14)
[2019-08-12] MEDS: DOCUSATE SODIUM 100 MG CAPSULE PO SCH (09:40)
[2019-08-12] MEDS: ASPIRIN EC 325 MG TABLET PO SCH (09:40)
[2019-08-12] MEDS: carvediloL 3.125 MG TABLET PO SCH ×2 (09:40→21:13)
[2019-08-12] MEDS: MECLIZINE 25 MG TABLET PO SCH (09:40)
[2019-08-12] MEDS: FUROSEMIDE 20 MG TABLET PO SCH (09:40)
[2019-08-12] MEDS: PANTOPRAZOLE 40 MG TABLET PO SCH (09:40)
[2019-08-12] MEDS: PHENobarbital 30 MG TABLET PO SCH ×2 (09:40→21:14)
[2019-08-12] MEDS: MULTIVITAMIN (CENTRUM) TABLET PO SCH (09:40)
[2019-08-12] MEDS: CHLORHEXIDINE 0.12% ORAL RINSE 60 ML BOTTLE SWISH/SPIT SCH ×2 (09:41→21:15)
[2019-08-12] MEDS: ROSUVASTATIN 20 MG TABLET PO SCH (21:13)
[2019-08-13] MEDS: traMADol 50 MG TABLET PO PRN ×2 (02:21→23:41)
[2019-08-13] MEDS: carBAMazepine 200 MG TABLET PO SCH ×2 (09:01→23:22)
[2019-08-13] MEDS: ASPIRIN EC 325 MG TABLET PO SCH (09:01)
[2019-08-13] MEDS: LISINOPRIL/HCTZ 20-12.5 MG TABLET PO SCH (09:01)
[2019-08-13] MEDS: SPIRONOLACTONE 25 MG TABLET PO SCH ×2 (09:02→23:22)
[2019-08-13] MEDS: MULTIVITAMIN (CENTRUM) TABLET PO SCH (09:02)
[2019-08-13] MEDS: carvediloL 3.125 MG TABLET PO SCH ×2 (09:03→23:21)
[2019-08-13] MEDS: FERROUS SULFATE 325 MG TABLET PO SCH (09:03)
[2019-08-13] MEDS: DOCUSATE SODIUM 100 MG CAPSULE PO SCH (09:03)
[2019-08-13] MEDS: PHENobarbital 30 MG TABLET PO SCH ×2 (09:04→23:23)
[2019-08-13] MEDS: CHLORHEXIDINE 0.12% ORAL RINSE 60 ML BOTTLE SWISH/SPIT SCH ×2 (09:04→23:25)
[2019-08-13] MEDS: PANTOPRAZOLE 40 MG TABLET PO SCH (09:04)
[2019-08-13] MEDS: FUROSEMIDE 20 MG TABLET PO SCH (09:04)
[2019-08-13] MEDS: ROSUVASTATIN 20 MG TABLET PO SCH (23:23)
[2019-08-14] MEDS: LISINOPRIL/HCTZ 20-12.5 MG TABLET PO SCH (08:31)
[2019-08-14] MEDS: CHLORHEXIDINE 0.12% ORAL RINSE 60 ML BOTTLE SWISH/SPIT SCH (08:31)
[2019-08-14] MEDS: ASPIRIN EC 325 MG TABLET PO SCH (08:31)
[2019-08-14] MEDS: FUROSEMIDE 20 MG TABLET PO SCH (08:32)
[2019-08-14] MEDS: carBAMazepine 200 MG TABLET PO SCH (08:32)
[2019-08-14] MEDS: SPIRONOLACTONE 25 MG TABLET PO SCH (08:32)
[2019-08-14] MEDS: DOCUSATE SODIUM 100 MG CAPSULE PO SCH (08:32)
[2019-08-14] MEDS: MECLIZINE 25 MG TABLET PO SCH (08:32)
[2019-08-14] MEDS: carvediloL 3.125 MG TABLET PO SCH (08:32)
[2019-08-14] MEDS: FERROUS SULFATE 325 MG TABLET PO SCH (08:32)
[2019-08-14] MEDS: PHENobarbital 30 MG TABLET PO SCH (08:33)
[2019-08-14] MEDS: MULTIVITAMIN (CENTRUM) TABLET PO SCH (08:33)
[2019-08-14] MEDS: PANTOPRAZOLE 40 MG TABLET PO SCH (08:33)
[2019-08-14 09:50] VITALS: BP 147/78
== END 2019-08-14 13:49 | disposition swing bed (61) | DRG 217 ==
LOC: N.CL 05:33 → N.TELES 14:23 → N.CVR 08-01 13:33 → N.ICU 08-02 06:56 → N.TELES 08-03 14:34
PROVIDERS: ADMIT Internal Medicine Cardiovascular Disease